=== PATIENT | female | born 1975 | race Caucasian/White ===

== ENCOUNTER 2018-01-02 11:05 | Emergency (ER) | payer BC ==
[2018-01-02 15:54] VITALS: BP 158/82
--- NOTE | 2018-01-02 21:11 | ED ---
Skin Complaint - HPI Summary HPI Summary: Patient presents to the ED with the chief complaint of probable abscess to the right inner labial fold which has been present intermittently x 2-3 years and has drained spontaneously. On this date she has been unable to drain at home. She endorses pain, intermittent drainage 1 week, with foul-smelling purulent discharge. She states it is radiating in through to the buttocks, however denies any known abscesses there. Denies any other pelvic infection. She does not see an AUTOMOBILE TECHNICIAN regularly. She was seen 3 years ago for similar complaint and the area was drained with good improvement. She has not tried warm compresses or warm baths at home. Denies any fevers, sweats, chills. Denies any other signs of infection. - History of Current Complaint Chief Complaint: EDRashSkinAbscess Time Seen by Provider: 01/02/18 12:54 Stated Complaint: PELVIC PAIN Hx Obtained From: Patient Onset/Duration: Started Hours Ago Skin Exposure Onset/Duration: Hours Ago Timing: Constant Onset Severity: Moderate Current Severity: Moderate Pain Intensity: 3 Pain Scale Used: 0-10 Numeric Aggravating Symptom(s): Touch Alleviating Symptom(s): Nothing Associated Signs & Symptoms: Tenderness - Allergy/Home Medications Allergies/Adverse Reactions: Allergies Allergy/AdvReac Type Severity Reaction Status Date / Time MS Ciprofloxacin Allergy Mild Rash Verified 12/13/13 07:12 [Ciprofloxacin] MS Azithromycin Allergy Rash Verified 12/08/13 19:44 [Azithromycin] MS Bee Venom [Bee Venom] Allergy Swelling Verified 12/08/13 19:52 MS Cephalexin [From Keflex] Allergy Rash Verified 12/08/13 19:44 MS Diphenhydramine Allergy Airway Verified 12/08/13 19:44 [From Benadryl] Obstruction MS Levofloxacin Allergy Rash Verified 11/22/15 09:01 [From Levaquin] MS Metformin Allergy Rash Verified 12/08/13 19:44 [From Glucophage] MS Sulfa Antibiotics Allergy Rash Verified 12/08/13 19:52 [Sulfa Antibiotics] PMH/Surg Hx/FS Hx/Imm Hx Previously Healthy: Yes Endocrine/Hematology History: Denies: Hx Diabetes Cardiovascular History: Reports: Hx Hypertension, Other Cardiovascular Problems/ Disorders - Hx HTN Denies: Hx Congestive Heart Failure History: Denies: Hx Renal Disease Sensory History: Reports: 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 - Surgical History Surgery Procedure, Year, and Place: 2007, , 2005, exploratory laparoscopy r/t infertility issues - Immunization History Hx Pertussis Vaccination: No Immunizations Up to Date: Unable to Obtain/Confirm Infectious Disease History: No Infectious Disease History: Denies: Traveled Outside the [place] in Last 30 Days - Social History Occupation: Employed Full-time Lives: With Family Alcohol Use: Rare Hx Substance Use: No Substance Use Type: Reports: None Hx Tobacco Use: No Smoking Status (MU): Never Smoked Tobacco Review of Systems Constitutional: Negative Negative: Fever, Chills, Fatigue, Skin Diaphoresis Eyes: Negative Cardiovascular: Negative Genitourinary: Negative Positive: no symptoms reported, see HPI. Negative: dysuria, discharge, frequency, flank pain, pain Musculoskeletal: Negative Positive: Other - pain to the pelvic floor, specifically over the interlabial folds Neurological: Negative All Other Systems Reviewed And Are Negative: Yes Physical Exam Triage Information Reviewed: Yes Vital Signs On Initial Exam: Initial Vitals Temp Pulse Resp BP Pulse Ox 98.0 F 71 20 163/79 99 01/02/18 11:09 01/02/18 11:09 01/02/18 11:09 01/02/18 11:09 01/02/18 11:09 Vital Signs Reviewed: Yes Appearance: Positive: Well-Appearing, Well-Nourished Skin: Positive: Warm, Skin Color Reflects Adequate Perfusion Head/Face: Positive: Normal Head/Face Inspection Eyes: Positive: EOMI, DONALD Neck: Positive: Supple, Nontender, No Lymphadenopathy Respiratory/Lung Sounds: Positive: Clear to Auscultation, Breath Sounds Present Cardiovascular: Positive: Normal, RRR, Pulses are Symmetrical in both Upper and Lower Extremities Musculoskeletal: Positive: Normal, Strength/ROM Intact Neurological: Positive: Speech Normal Psychiatric: Positive: Normal, Affect/Mood Appropriate AVPU Assessment: Alert Diagnostics - Vital Signs Vital Signs Temp Pulse Resp BP Pulse Ox 01/02/18 15:30 98.4 F 76 18 158/82 97 01/02/18 11:09 98.0 F 71 20 163/79 99 - Laboratory Lab Statement: Any lab studies that have been ordered have been reviewed, and results considered in the medical decision making process. Course/Dx - Course Course Of Treatment: During the course of treatment, the patient is evaluated for right inner labial abscess over the labial minora. She states she feels pressure, specifically with urination. Denies any pain with defecation. Provider set up for I and D. Povidine x 3. Palpated the vaginal entrance to assess for tracking and loculations. There appears to be a 2cm by 2cm fluctuant abscess without surrounding erythema or excoriations to the R labia minora. Upon palpation, the abscess began to drain spontaneously. Approximately 2.5cc obtained. Culture obtained and sent for sensitivities. Continued without the need for incision or anesthetic to palpate and produce copious discharge until serosangionous fluid identified. 10cc's NS flushed into the abscess cavity opening. Patient tolerated well. No iodoform dressing applied as small cavity opening. She is encouraged warm compresses and hot baths 3x daily. She will be started on clindamycin 300 mg 4 times daily 7 days. She is to follow-up with AUTOMOBILE TECHNICIAN for further evaluation due to recurring abscesses. We'll await culture results. - Diagnoses Provider Diagnoses: Abscess of right genital labia Discharge - Discharge Plan Condition: Stable Disposition: HOME Prescriptions: Clindamycin Cap(NF) [Clindamycin Cap 300 mg Cap(NF)] 300 mg PO Q6H #28 cap traMADol TAB* [Ultram*] 50 mg PO Q8H PRN #12 tab MDD 3 PRN Reason: Pain Patient Education Materials: Abscess (ED) Forms: *Work Release Referrals: Tala Shahid DO [Primary Care Provider] - Claribel Noel MD [Medical Doctor] - Additional Instructions: Warm compresses several times a day Hot soaks in a tub will help- 3 times daily Clindamycin 4 times daily 7 days Tramadol up to 3 times daily for discomfort You may also take ibuprofen with this medication on opposite schedule If he develop any worsening or changing symptoms, return to the ED immediately Follow up with AUTOMOBILE TECHNICIAN I have given you a referral Images - Images Perineum Female: 1 - 3cm x 3cm fluctuant abscess
== END 2018-01-02 15:30 | disposition home or self-care (01) ==
LOC: ED 11:05
DX: N76.4 Abscess of vulva (principal); R10.2 Pelvic and perineal pain; Z86.79 Personal history of other diseases of the circulatory system
CPT/HCPCS: 99282

== ENCOUNTER 2018-01-03 23:11 | Emergency (ER) | payer BC ==
[2018-01-04] MEDS ORDERED: NS 0.9% 1000 ML*IV.FLUID IV ONE (01:28)
[2018-01-04] MEDS ORDERED: NS 0.9% 1000 ML* 1,000 ML IV ONE ×2 (01:45→01:57)
--- NOTE | 2018-01-04 01:49 | ED ---
Skin Complaint - HPI Summary HPI Summary: 42 female presents with abscess to her vagina for the past couple days. She states yesterday it spontaneously drained when it was being palpated. She has history of abscess in the same location. She has not followed up with anyone about this. She states she's been on Clindamycin for a day. She states today she developed worsening pain and fevers. today. She denies any chills. She denies abdominal pain. She denies any dysuria. She denies any nausea vomiting. She denies any history of MRSA. She denies any cough, chest pain or SOB. She has not been doing warm soaks. She has been taking tramadol for pain. She denies any other symptoms. - History of Current Complaint Chief Complaint: EDGeneral Time Seen by Provider: 01/04/18 01:30 Stated Complaint: FEVER Pain Intensity: 8 - Allergy/Home Medications Allergies/Adverse Reactions: Allergies Allergy/AdvReac Type Severity Reaction Status Date / Time ciprofloxacin [From Cipro] Allergy Mild Rash Verified 01/04/18 02:19 azithromycin Allergy Rash Verified 01/04/18 02:19 bee venom protein (honey bee) Allergy Swelling Verified 01/04/18 02:19 cephalexin Allergy Rash Verified 01/04/18 02:19 diphenhydramine Allergy Airway Verified 01/04/18 02:19 Obstruction levofloxacin [From Levaquin] Allergy Rash Verified 01/04/18 02:19 metformin Allergy Rash Verified 01/04/18 02:19 Sulfa (Sulfonamide Allergy Rash Verified 01/04/18 02:19 Antibiotics) PMH/Surg Hx/FS Hx/Imm Hx Endocrine/Hematology History: Denies: Hx Diabetes Cardiovascular History: Reports: Hx Hypertension, Other Cardiovascular Problems/ Disorders - Hx HTN Denies: Hx Congestive Heart Failure History: Denies: Hx Renal Disease Sensory History: Reports: 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 - Surgical History Surgery Procedure, Year, and Place: 2006, , 2005, exploratory laparoscopy r/t infertility issues - Immunization History Date of Tetanus Vaccine: utd Date of Influenza Vaccine: none Infectious Disease History: No Infectious Disease History: Denies: Traveled Outside the [place] in Last 30 Days - Family History Known Family History: Positive: Diabetes - Social History Alcohol Use: Occasionally Hx Substance Use: No Substance Use Type: Reports: None Hx Tobacco Use: No Smoking Status (MU): Never Smoked Tobacco Review of Systems Positive: Fever Negative: Chest Pain Negative: Shortness Of Breath Positive: Other - abscess vagina All Other Systems Reviewed And Are Negative: Yes Physical Exam Triage Information Reviewed: Yes Vital Signs On Initial Exam: Initial Vitals Temp Pulse Resp BP Pulse Ox 100.9 F 80 20 145/75 96 01/03/18 23:18 01/03/18 23:18 01/03/18 23:18 01/03/18 23:18 01/03/18 23:18 Vital Signs Reviewed: Yes Appearance: Positive: Well-Appearing Skin: Positive: Warm, Dry Head/Face: Positive: Normal Head/Face Inspection Eyes: Positive: Normal, Conjunctiva Clear Respiratory/Lung Sounds: Positive: Clear to Auscultation, Breath Sounds Present Cardiovascular: Positive: Normal, RRR Abdomen Description: Positive: Nontender, Soft Bowel Sounds: Positive: Present Pelvic Exam: Positive: other - small laceration seen on right labia minora that is not draining any pus, no area of loculation or edema felt Musculoskeletal: Positive: Normal Neurological: Positive: Normal Psychiatric: Positive: Normal Diagnostics - Vital Signs Vital Signs Temp Pulse Resp BP Pulse Ox 01/03/18 23:18 100.9 F 80 20 145/75 96 - Laboratory Result Diagrams: 01/04/18 01:45 01/04/18 01:45 Lab Statement: Any lab studies that have been ordered have been reviewed, and results considered in the medical decision making process. Course/Dx - Course Course Of Treatment: 42 female presents with abscess to her vagina for the past couple days. She states yesterday it spontaneously drained when it was being palpated. She has history of abscess in the same location. She has not followed up with anyone about this. She states she's been on Clindamycin for a day. She states today she developed worsening pain and fevers. today. She denies any chills. She denies abdominal pain. She denies any dysuria. She denies any nausea vomiting. She denies any history of MRSA. on exam abdomen soft nontender. small laceration seen on right labia with no erythema and no pus or edema felt in area. abscess appears to be drained. labs wnl except potassium which supplemented. stated to continue clindamycin and will wait for culture to know if sensitive. told if have two days on antibiotic fever occurs to return. patient understand and agrees with plan. - Differential Diagnoses - Skin Complaint Differential Diagnoses: Abscess, Cellulitis, Systemic Illness - Diagnoses Provider Diagnoses: Abscess of right genital labia Discharge - Discharge Plan Condition: Good Disposition: HOME Patient Education Materials: Abscess (ED) Referrals: Tala Shahid DO [Primary Care Provider] - Additional Instructions: Make sure follow up with ob for continue management Add Tylenol for fever and pain every 6 hours Do warm soaks or baths of area twice a day Continue antibiotic as prescribed Return to ED if develop fever after two days on antibiotic or any new or worsening symptoms
[2018-01-04 02:00] LABS: ABS Basophils 0.1 10^3/ul (0-0.2); ABS Eosinophils 0.1 10^3/ul (0-0.6); ABS Lymphocytes 1.3 10^3/ul (1.0-4.8); ABS Monocytes 0.8 10^3/ul (0-0.8); ABS Neutrophils 7.7 10^3/ul (1.5-7.7); ABS Nucleated RBC 0 10^3/ul; Eosinophil % 0.9 % (0-6); Hematocrit 35 % (35-47); Hemoglobin 11.8 g/dl (12.0-16.0); Lymphocyte % 12.9 % (25-47); Mean Corpuscular HGB Conc 34 g/dl (31-36); Mean Corpuscular Hemoglobin 28 pg (27-31); Mean Corpuscular Volume 82 fL (80-97); Mean Platelet Volume 8 um3 (7.4-10.4); Nucleated Red Blood Cells % 0; Platelet Count 246 10^3/ul (150-450); Red Blood Count 4.25 10^6/ul (4.0-5.4); Red Cell Distribution Width 15 % (10.5-15)
[2018-01-04] MEDS ORDERED: Vancomycin(*) 1,000 MG VIAL IVPB SCH (02:00)
[2018-01-04 02:10] LABS: INR 1.03 (0.77-1.02)
[2018-01-04 02:16] LABS: EGFR Non-African American 79.1 (>60)
[2018-01-04] MEDS ORDERED: Potassium Chlor TAB* 20 MEQ TAB.ER PO ONE (02:28)
[2018-01-04 03:40] VITALS: BP 104/49
== END 2018-01-04 03:39 | disposition home or self-care (01) ==
LOC: ED 23:11
DX: N76.0 Acute vaginitis (principal); R50.9 Fever, unspecified; Z86.79 Personal history of other diseases of the circulatory system; N76.4 Abscess of vulva
CPT/HCPCS: 36415; 80053; 83605; 84484; 85025; 85610; 85730; 87040; 96365; 99282; A9270-GY

== ENCOUNTER 2018-01-05 16:48 | Inpatient (IN) | payer BC ==
[2018-01-05 18:12] LABS: ABS Basophils 0.1 10^3/ul (0-0.2); ABS Eosinophils 0 10^3/ul (0-0.6); ABS Lymphocytes 0.9 10^3/ul (1.0-4.8); ABS Monocytes 1.4 10^3/ul (0-0.8); ABS Neutrophils 11.1 10^3/ul (1.5-7.7); ABS Nucleated RBC 0 10^3/ul; Eosinophil % 0.3 % (0-6); Hematocrit 37 % (35-47); Hemoglobin 11.9 g/dl (12.0-16.0); Lymphocyte % 6.8 % (25-47); Mean Corpuscular HGB Conc 33 g/dl (31-36); Mean Corpuscular Hemoglobin 27 pg (27-31); Mean Corpuscular Volume 83 fL (80-97); Mean Platelet Volume 8 um3 (7.4-10.4); Nucleated Red Blood Cells % 0; Platelet Count 265 10^3/ul (150-450); Red Blood Count 4.39 10^6/ul (4.0-5.4); Red Cell Distribution Width 15 % (10.5-15); White Blood Count 13.5 10^3/ul (3.5-10.8)
[2018-01-05] MEDS ORDERED: Morphine INJ* 4 MG/ML 1 ML SYRINGE (NEW SYRINGE VERSION) IV ONE (18:18)
[2018-01-05] MEDS ORDERED: Ondansetron INJ* 2 MG/ML VIAL IV ONE (18:19)
[2018-01-05 18:29] LABS: EGFR Non-African American 79.1 (>60)
[2018-01-05] MEDS ORDERED: Iohexol 300* (CONTRAST) 10 ML SDV IV ONE (18:37)
[2018-01-05] MEDS: NS 0.9% 1000 ML* 2,000 ML IV ONE ×2 (18:57→19:02)
[2018-01-05] MEDS ORDERED: Piperacillin/Tazobac ADVAN(*) 3.375 GM in NS 0.9% 100 ML* 100 ML IVPB ONE (19:43)
--- NOTE | 2018-01-05 20:01 | RAD ---
CLINICAL HISTORY: Vaginal and rectal abscesses, pain COMPARISON: CT of the pelvis dated December 09, 2013 TECHNIQUE: Multiple contiguous axial CT scans were obtained of the pelvis after the administration of intravenous contrast. Coronal and sagittal multiplanar reformations are submitted for review. FINDINGS: Evaluation is limited secondary to patient body habitus. SMALL BOWEL AND MESENTERY: The small bowel is normal in contour, course, and caliber. There is no obstruction or dilatation. COLON: There is mild stranding of the perirectal fat. There is a loculated perianal fluid collection in a horseshoe configuration posterior to the anus measuring approximately 4.3 x 3.3 x 3.3 cm in size. This extends anteriorly to the level of the perineum.. KIDNEYS: The visualized portion of the lower poles of the kidneys are unremarkable. BLADDER: The bladder is smooth in contour. PELVIC ORGANS: The uterus and adnexa are grossly normal for technique. AORTA: The aorta is normal. IVC: Unremarkable LYMPH NODES: There is no lymphadenopathy by size criteria. ABDOMINAL WALL: There is no evidence for abdominal wall hernia. BONES AND SOFT TISSUES: There are mild diffuse degenerative changes. OTHER: None IMPRESSION: THERE IS A LOCULATED PERIANAL FLUID COLLECTION IN A HORSESHOE CONFIGURATION POSTERIOR TO THE ANUS, EXTENDING ANTERIORLY TO THE LEVEL OF THE PERINEUM MEASURING UP TO 4.3 CM IN SIZE, CONSISTENT WITH HISTORY OF ABSCESS.
[2018-01-05] MEDS ORDERED: Piperacillin/Tazobac (*) 3.375 GM BAG ONE (20:07)
--- NOTE | 2018-01-05 20:18 | ED ---
GI/ HPI - HPI Summary HPI Summary: 42F presents with rectal pain on right side today. She had been complaining of vaginal pain for past 4 days. She had a vaginal abscess that spontaneously drained four days ago. She states develop fever the day after and was seen here and had normal labs. denied any anal pain at the time. no abscess felt at that time vaginally. She denies any recent fever. She states has develop increase pain and swelling in anal region. She has history of vaginal abscess but no history of anal abscess or UC or crohns. She admits to constipation and states BM makes pain worst. She denies any nausea or vomiting. She denies any abdominal pain. She denies any vaginal discharge. She denies any dysuria or flank pain. She denies any bloody stools. She is not diabetic. She has been on clindamycin for past 4 days. She denies any history of MRSA. - History of Current Complaint Chief Complaint: EDRashSkinAbscess Time Seen by Provider: 01/05/18 17:46 Stated Complaint: ABD PAIN Pain Intensity: 10 - Allergy/Home Medications Allergies/Adverse Reactions: Allergies Allergy/AdvReac Type Severity Reaction Status Date / Time ciprofloxacin [From Cipro] Allergy Mild Rash Verified 01/04/18 02:19 azithromycin Allergy Rash Verified 01/04/18 02:19 bee venom protein (honey bee) Allergy Swelling Verified 01/04/18 02:19 cephalexin Allergy Rash Verified 01/04/18 02:19 diphenhydramine Allergy Airway Verified 01/04/18 02:19 Obstruction levofloxacin [From Levaquin] Allergy Rash Verified 01/04/18 02:19 metformin Allergy Rash Verified 01/04/18 02:19 Sulfa (Sulfonamide Allergy Rash Verified 01/04/18 02:19 Antibiotics) PMH/Surg Hx/FS Hx/Imm Hx Endocrine/Hematology History: Denies: Hx Diabetes Cardiovascular History: Reports: Hx Hypertension, Other Cardiovascular Problems/ Disorders - Hx HTN Denies: Hx Congestive Heart Failure History: Denies: Hx Renal Disease Sensory History: Reports: 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 - Surgical History Surgery Procedure, Year, and Place: 2006, , 2005, exploratory laparoscopy r/t infertility issues - Immunization History Date of Tetanus Vaccine: utd Date of Influenza Vaccine: none Infectious Disease History: No Infectious Disease History: Denies: Traveled Outside the [place] in Last 30 Days - Family History Known Family History: Positive: Diabetes - Social History Alcohol Use: Occasionally Hx Substance Use: No Substance Use Type: Reports: None Hx Tobacco Use: No Smoking Status (MU): Never Smoked Tobacco Review of Systems Negative: Fever Negative: Chest Pain Negative: Shortness Of Breath Positive: Other - rectal and vaginal pain All Other Systems Reviewed And Are Negative: Yes Physical Exam Triage Information Reviewed: Yes Vital Signs On Initial Exam: Initial Vitals Temp Pulse Resp BP Pulse Ox 99.7 F 103 18 156/96 100 01/05/18 16:54 01/05/18 16:54 01/05/18 16:54 01/05/18 16:54 01/05/18 16:54 Vital Signs Reviewed: Yes Appearance: Positive: Well-Appearing Skin: Positive: Warm, Dry Head/Face: Positive: Normal Head/Face Inspection Eyes: Positive: Normal, Conjunctiva Clear Respiratory/Lung Sounds: Positive: Clear to Auscultation, Breath Sounds Present Cardiovascular: Positive: Normal, RRR Abdomen Description: Positive: Nontender, Soft, Other: - tenderness around anus and with rectal exam Bowel Sounds: Positive: Present Pelvic Exam: Positive: external exam normal Musculoskeletal: Positive: Normal Neurological: Positive: Normal Psychiatric: Positive: Normal Diagnostics - Vital Signs Vital Signs Temp Pulse Resp BP Pulse Ox 01/05/18 18:56 18 01/05/18 16:54 99.7 F 103 18 156/96 100 - Laboratory Lab Results: Lab Results 01/05/18 01/05/18 01/05/18 Range/Units 18:04 18:04 18:04 WBC 13.5 H (3.5-10.8) 10^3/ul RBC 4.39 (4.0-5.4) 10^6/ul Hgb 11.9 L (12.0-16.0) g/dl Hct 37 (35-47) % MCV 83 (80-97) fL MCH 27 (27-31) pg MCHC 33 (31-36) g/dl RDW 15 (10.5-15) % Plt Count 265 (150-450) 10^3/ul MPV 8 (7.4-10.4) um3 Neut % (Auto) 82.2 (38-83) % Lymph % (Auto) 6.8 L (25-47) % [place] % (Auto) 10.1 H (0-7) % Eos % (Auto) 0.3 (0-6) % Baso % (Auto) 0.6 (0-2) % Absolute Neuts (auto) 11.1 H (1.5-7.7) 10^3/ul Absolute Lymphs (auto) 0.9 L (1.0-4.8) 10^3/ul Absolute Monos (auto) 1.4 H (0-0.8) 10^3/ul Absolute Eos (auto) 0 (0-0.6) 10^3/ul Absolute Basos (auto) 0.1 (0-0.2) 10^3/ul Absolute Nucleated RBC 0 10^3/ul Nucleated RBC % 0 Sodium 137 (133-145) mmol/L Potassium 3.3 L (3.5-5.0) mmol/L Chloride 104 (101-111) mmol/L Carbon Dioxide 26 (22-32) mmol/L Anion Gap 7 (2-11) mmol/L BUN 9 (6-24) mg/dL Creatinine 0.79 (0.51-0.95) mg/dL Est GFR ( Amer) 101.7 (>60) Est GFR (Non-Af Amer) 79.1 (>60) BUN/Creatinine Ratio 11.4 (8-20) Glucose 105 H (70-100) mg/dL Lactic Acid 0.9 (0.5-2.0) mmol/L Calcium 8.6 (8.6-10.3) mg/dL Total Bilirubin 0.60 (0.2-1.0) mg/dL AST 13 (13-39) U/L ALT 8 (7-52) U/L Alkaline Phosphatase 66 (34-104) U/L C-React Prot High Sens 25.69 mg/L Total Protein 7.0 (6.4-8.9) g/dL Albumin 3.4 (3.2-5.2) g/dL Globulin 3.6 (2-4) g/dL Albumin/Globulin Ratio 0.9 L (1-3) Beta HCG, Quant < 0.60 mIU/mL Result Diagrams: 01/05/18 18:04 01/05/18 18:04 Lab Statement: Any lab studies that have been ordered have been reviewed, and results considered in the medical decision making process. GIGU Course/Dx - Course Course Of Treatment: 42F presents with rectal pain on right side today. She had been complaining of vaginal pain for past 4 days. She had a vaginal abscess that spontaneously drained four days ago. She states develop fever the day after and was seen here and had normal labs. denied any anal pain at the time. no abscess felt at that time vaginally. She denies any recent fever. She states has develop increase pain and swelling in anal region. She has history of vaginal abscess but no history of anal abscess or UC or crohns. She admits to constipation and states BM makes pain worst. She denies any nausea or vomiting. She denies any abdominal pain. She denies any vaginal discharge. She denies any dysuria or flank pain. She denies any bloody stools. She is not diabetic. on exam has tenderness around anus and with rectal exam. no abscess felt on exam. CT shows large perianal abscess. discussed case with dr juárez who will see in ED. dr juárez will admit. - Diagnoses Differential Diagnoses - Female: Hemorrhoids, Vaginitis, Other - abscess Provider Diagnoses: Perianal abscess Discharge - Discharge Plan Condition: Stable Disposition: [facility]
[2018-01-05] MEDS ORDERED: Ondansetron INJ* 2 MG/ML VIAL IV PRN (21:27)
[2018-01-05] MEDS: HYDROmorphone INJ* 2 MG/ML CARPUJECT SYRINGE IV PRN ×2 (22:05→23:34)
--- NOTE | 2018-01-05 22:24 | HP ---
CC: [facility]; Madeleine Shahid DO * HISTORY AND PHYSICAL: DATE OF ADMISSION: HISTORY OF PRESENT ILLNESS: I was contacted by the emergency room to evaluate Ms. Mandujano, a 42-year-old female, with a 4-day history of perineal discomfort. The patient had presented to the emergency room 3 days ago with pelvic pain. It was felt to be a vaginal issue and underwent what was felt to be at that time spontaneous drainage of a vaginal abscess. She followed up the following day. She was started on clindamycin and discharged home. She came back to the emergency room yesterday with similar complaints, was maintained on clindamycin and referred to a underwriting operations manager. The patient states she did have some perianal pain at that time as well, but this had worsened over the course of the last day. The patient presented again today with 10/10 rectal pain mostly on the right side. The patient suffered with clinically severe obesity with a body mass index of 65 and was run to the CAT scan to evaluate. The images as well as the report were reviewed and it does show a perirectal abscess in a horseshoe fashion measured approximately 4 cm. The patient was given a dose of Zosyn and we were contacted. The patient prescribes having abscesses in the past around the vaginal area and the groin, but not perirectal abscesses. The patient is non-diabetic. The patient has no additional complaints. Pain is minimally relieved with narcotics and rest, worse with movement and bowel movements. Her last bowel movement was earlier today. She denies any nausea or vomiting. She has had low -grade temperature. PAST MEDICAL HISTORY: Polycystic ovary disease and hypertension. MEDICATIONS: Include: 1. Ultram. 2. Actos. 3. Lisinopril. 4. Hydrochlorothiazide. 5. Clindamycin that was started. ALLERGIES: List is reviewed. SOCIAL HISTORY: Nonsmoker. Lives with her family. REVIEW OF SYSTEMS: Low-grade fevers, no chills. No recent upper respiratory infection, no shortness of breath or chest pain. Obesity as described. No abdominal pain. Rectal and vaginal discomfort and pain as described. No drainage rectally. No dysuria. No bleeding or clotting disorders. PHYSICAL EXAMINATION GENERAL: Alert and oriented x3, in no distress but saddened. VITAL SIGNS: The patient's temperature is 99.7; heart rate on arrival 103, now 76; blood pressure 145/69. LUNGS: Clear. ABDOMEN: Soft, obese, nontender. EXTREMITIES: Show edema without pitting. : Vaginal area is intact without active drainage. Perianal area shows no cellulitis. She is tender diffusely without fluctuance. Digital rectal exam was performed and the patient is significantly tender. No masses were appreciated. DIAGNOSTIC STUDIES/LAB DATA: Show white count of 13.5. Chemistry panel has an elevated CRP of 25. CT scan reviewed and described above. IMPRESSION: A 42-year-old female, morbidly obese, 390 pounds, BMI of 65, who now has radiographic evidence and clinical suspicion for a perirectal abscess. This could be potential horseshoe abscess but mostly is on the right side. It does want drainage. This cannot be performed without operating room and I recommended general anesthesia operating room and incision and drainage. We will admit her to the hospital. Continue Zosyn. We will continue n.p.o. status and IV fluids. She can certainly ambulate and we will record her urine output. She does feel signs of systemic inflammatory response without sepsis. I did review the blood cultures from the other admissions that showed no growth and there was no fluid cultures to review. The patient understands that my partner will likely to do the drainage. [id number]/[facility] #: [id number] MTDD
[2018-01-05] MEDS: NS 0.9% 1000 ML* 1,000 ML IV SCH (23:20)
[2018-01-06] MEDS ORDERED: Piperacillin/Tazobactam VIAL*) 3.375 GM in NS 0.9% 100 ML* 100 ML IVPB SCH (01:00)
[2018-01-06] MEDS: Piperacillin/Tazobactam 13.5 GM IV 24 hour continuous infusion IVPB SCH ×2 (01:14)
[2018-01-06] MEDS: HYDROmorphone INJ* 2 MG/ML CARPUJECT SYRINGE IV PRN (04:12)
[2018-01-06] MEDS: NS 0.9% 1000 ML* 1,000 ML IV SCH ×2 (07:27→17:38)
[2018-01-06] MEDS ORDERED: Lidocaine 2% JELLY* 6 ML JELLY TOPICAL ONE (14:13)
[2018-01-06] MEDS ORDERED: Bupivacaine 0.5% SDV PF* 10-30ML VIAL ONE ×2 (14:13→15:46)
[2018-01-06] MEDS ORDERED: Lidocaine 1% MPF wEPI 200,000* 30 ML SDV ONE ×3 (14:31→15:46)
[2018-01-06] MEDS ORDERED: Midazolam* 1 MG/ML 5 ML VIAL (5 MG) ONE (14:34)
[2018-01-06] MEDS ORDERED: fentaNYL* 50 MCG/ML 2 ML VIAL (100 MCG VIAL) ONE ×2 (14:34→14:52)
[2018-01-06] MEDS ORDERED: Midazolam* 1 MG/ML 2 ML VIAL (2 MG) ONE ×2 (14:52→15:37)
[2018-01-06] MEDS ORDERED: KETAMINE HCL* 50 MG/ML 10 ML VIAL ONE (14:52)
--- NOTE | 2018-01-06 16:02 | OP ---
Operative Report - Blank - Operative Report Date of Operation: 01/06/18 Note: Preop Dx: perianal abscess Postop Dx: same Procedure: Exam under anesthesia; aspiration perianal and perineal areas, submitted for C&S Anesthesia: local/MAC Surgeon: Richard Asst: FILIBERTO Gaines; GARETT Coombs Fluids: 1000 ml EBL: < 50 ml Drains/Packs: none Findings: dictated
[2018-01-06] MEDS ORDERED: Ketorolac INJ* 30 MG/ML 1 ML VIAL IV PUSH PRN (16:06)
[2018-01-06] MEDS ORDERED: Acetaminophen TAB* 325 MG PO PRN ×2 (16:06→16:13)
[2018-01-06] MEDS ORDERED: oxyCODONE TAB* 5 MG TAB PO PRN (16:13)
[2018-01-06] MEDS ORDERED: Naloxone* 0.4 MG/ML 1 ML VIAL IV PRN (16:13)
[2018-01-06] MEDS: HYDROcodone/ACETAMIN 5-325 MG* 1 TAB PO PRN (18:41)
[2018-01-07] MEDS: HYDROcodone/ACETAMIN 5-325 MG* 1 TAB PO PRN (00:14)
[2018-01-07] MEDS: NS 0.9% 1000 ML* 1,000 ML IV SCH ×3 (01:09→18:37)
[2018-01-07] MEDS: Piperacillin/Tazobactam 13.5 GM IV 24 hour continuous infusion IVPB SCH ×2 (01:09)
[2018-01-07 05:28] LABS: ABS Basophils 0 10^3/ul (0-0.2); ABS Eosinophils 0.1 10^3/ul (0-0.6); ABS Lymphocytes 1.6 10^3/ul (1.0-4.8); ABS Monocytes 0.9 10^3/ul (0-0.8); ABS Neutrophils 6.2 10^3/ul (1.5-7.7); ABS Nucleated RBC 0 10^3/ul; Eosinophil % 1.1 % (0-6); Hematocrit 30 % (35-47); Hemoglobin 10.2 g/dl (12.0-16.0); Lymphocyte % 18.2 % (25-47); Mean Corpuscular HGB Conc 34 g/dl (31-36); Mean Corpuscular Hemoglobin 29 pg (27-31); Mean Corpuscular Volume 83 fL (80-97); Mean Platelet Volume 8 um3 (7.4-10.4); Nucleated Red Blood Cells % 0; Platelet Count 207 10^3/ul (150-450); Red Blood Count 3.56 10^6/ul (4.0-5.4); Red Cell Distribution Width 15 % (10.5-15); White Blood Count 8.8 10^3/ul (3.5-10.8)
[2018-01-07] MEDS: Heparin VIAL(*) 5000 UNITS/ML VIAL (FIVE THOUSAND) SUBCUT SCH ×3 (05:28→21:22)
[2018-01-07 05:42] LABS: EGFR Non-African American 97.3 (>60)
--- NOTE | 2018-01-07 08:41 | PN ---
Progress Note - Progress Note Date of Service: 01/07/18 SOAP: Subjective: She feels much better today-much less pain and moving around well. Having some lorenzo drainage from vaginal vault, minimal bleeding Ambulating without problem Objective: Afebrile for 24 hours Temp Pulse Resp BP Pulse Ox 97.6 F 52 18 108/52 97 01/07/18 03:36 01/07/18 03:36 01/07/18 03:36 01/07/18 03:36 01/07/18 03:36 Intake & Output 01/05/18 01/06/18 01/07/18 01/08/18 06:59 06:59 06:59 06:59 Intake Total 1100 5305 Output Total 700 325 Balance 400 4980 Weight 390 lb Intake: IV Fluids 1100 4625 ABX - ZOSYN 500 LR 1100 NS (0.9%) 1986 Oral 0 680 Output: Urine 700 325 PEX: Patient standing and difficult to examine today Pad with lorenzo non-odorous drainage Laboratory Results - last 24 hr 01/07/18 01/07/18 05:19 05:19 WBC 8.8 RBC 3.56 L Hgb 10.2 L Hct 30 L MCV 83 MCH 29 MCHC 34 RDW 15 Plt Count 207 MPV 8 Neut % (Auto) 70.3 Lymph % (Auto) 18.2 L [place] % (Auto) 9.9 H Eos % (Auto) 1.1 Baso % (Auto) 0.5 Absolute Neuts (auto) 6.2 Absolute Lymphs (auto) 1.6 Absolute Monos (auto) 0.9 H Absolute Eos (auto) 0.1 Absolute Basos (auto) 0 Absolute Nucleated RBC 0 Nucleated RBC % 0 Sodium 139 Potassium 3.3 L Chloride 110 Carbon Dioxide 25 Anion Gap 4 BUN 7 Creatinine 0.66 Est GFR ( Amer) 125.1 Est GFR (Non-Af Amer) 97.3 BUN/Creatinine Ratio 10.6 Glucose 93 Calcium 8.0 L Assessment: POD#1 s/p exam under anesthesia for right labial abscess, drained--no evidence of becca-anal or becca-rectal abscess. Morbid obesity Plan: Continue IV abx Diet Sitz bath if possible If continued improvement in next 24 hours, plan d/c home tomorrow on oral antibiotics.
--- NOTE | 2018-01-07 13:20 | OP ---
CC: [facility]; [facility] OPERATIVE REPORT: DATE OF OPERATION: 01/06/18 DATE OF : 71 SURGEON: Colt Ramos MD PHYSICIAN REPRESENTATIVE: FILIBERTO Bender ANESTHESIOLOGIST: Dr. Reddy. ANESTHESIA: Local with monitored anesthesia care. PRE-OP DIAGNOSES: 1. Possible perirectal abscess. 2. Recent right labial abscess. POST-OP DIAGNOSES: 1. No findings of perianal or perirectal abscess. 2. Spontaneously drained right labial abscess. OPERATIVE PROCEDURE: Anal, rectal, and vaginal exam under anesthesia with culture of fluid and aspiration of soft tissues in the perineum and perirectal area. ESTIMATED BLOOD LOSS: Minimal. SPECIMENS: Fluid for Gram stain and culture. COMPLICATIONS: None. DRAINS: None. PACKING: None. BRIEF HISTORY: Ms. Arcelia Mandujano is a 42-year-old woman who presented to the emergency room last night with rectal pain. She had been seen in the emergency room twice in the last 4 days and had a right labial abscess that was drained and was started on antibiotics. The pain persisted and she as per above developed severe perianal discomfort. She was noted to have low-grade fever and slight elevation of white blood cell count. She is morbidly obese with a BMI of 65 and an exam was difficult to perform. A CT scan of her pelvis was obtained; however, which showed concern for an abscess posterior to the anorectum--concern for a horseshoe-appearing abscess. She subsequently had a large amount of spontaneous purulent drainage from her vagina last night, but was admitted and started on IV antibiotics and was planned to be taken to the operating room today for an exam under anesthesia and possible abscess drainage. The procedure was discussed with the patient and her and the risks of, but not limited to, of bleeding, infection, abscess formation, discomfort, risk of anesthesia, further surgical intervention depending on operative findings, prolonged abscess cavity packing with dressing changes were all explained. In addition, due to her morbid obesity, she is at increased risk for anesthesia as well. FINDINGS: The patient had a previous recently drained right anterior inner labia abscess with a small opening with tenderness extending down along the vaginal wall on the right to the posterior wall of the vagina and perineum. There was no abnormality noted on the left. The perirectal and perianal areas showed some small internal and external hemorrhoids, but no evidence of induration, redness, mass or fluctuance. Anorectal exam showed some internal hemorrhoids without evidence of other abnormality. Aspiration in all 4 quadrants of the perianal area revealed no purulence or abscess. There was some small amount of turbid fluid aspirated in the right perineal area anterior to the rectum and this was sent for culture. There was no obvious abscess cavity and the labial abscess which I believe extended along the distal vaginal wall and vault appear to be adequately drained and was not opened. DESCRIPTION OF PROCEDURE: Written informed consent was obtained, the patient was already on IV antibiotics. She was taken to the operating room and placed in the prone david-knife position. Sequential compression devices and a warming blanket were applied. Anesthesia was administered. The perineum and buttocks were prepped and draped in the usual sterile fashion. She was placed in the prone david-knife position. Time-out verification was completed. Initially, 0.5% Marcaine mixed with 1% lidocaine with epinephrine was infiltrated in the perianal area as well as into the perineum. On careful examination, it appeared that there was no evidence of induration, redness, fullness, but she had been uncomfortable on exam in the perianal area. In all 4 quadrants of the perianal area, I passed an 18-gauge spinal needle several centimeters into the soft tissue. There was no evidence of an abscess, pus, fluid, or blood. Digital rectal exam which I also performed showed no evidence of mass or blood. Anoscopy showed some internal and external hemorrhoids, but no internal openings or other abnormality. Next, once again careful evaluation of the labia majora, the more posterior aspect was unremarkable. There was no induration or redness in the perineum and I also used a new 18-gauge needle to pass through this area into the soft tissue to see if it could aspirate an abscess cavity. There was some blood and some turbid fluid on one pass which I collected and sent for culture, but no true abscess cavity was entered. Further careful evaluation of the right labia majora noted the previously drained abscess cavity more anteriorly. This was well drained and there was no fluctuance or redness. I suspect at this point that perhaps the labial abscess had spontaneously drained after the CAT scan and the findings on the CT scan were more consistent with a perivaginal/perineal infection rather than a true perirectal abscess. At this point, I did not feel that there was further packing or opening of the abscess cavity, it seemed to be well drained and hemostasis was assured. Dry dressings were applied. The patient tolerated the procedure well, was taken to the recovery room in stable condition. [id number]/[facility] #: [id number] MTDD
[2018-01-08] MEDS: Piperacillin/Tazobactam 13.5 GM IV 24 hour continuous infusion IVPB SCH ×2 (01:01)
[2018-01-08] MEDS: NS 0.9% 1000 ML* 1,000 ML IV SCH (02:37)
[2018-01-08] MEDS: Heparin VIAL(*) 5000 UNITS/ML VIAL (FIVE THOUSAND) SUBCUT SCH (05:43)
[2018-01-08 07:24] VITALS: BP 138/62
--- NOTE | 2018-01-08 09:01 | PN ---
Progress Note - Progress Note Date of Service: 01/08/18 SOAP: Subjective: Patient seen and examined at bedside. Reports doing very well overall. No fever yesterday, pain has significantly improved. Denies discharge from I&D site, did not have to change her pad all day. Ambulatory, tolerating diet and would like to go home. Objective: Awake and alert, comfortable in bed. VSS, afebrile past 24 hrs Exam done with nurse presents in room; right labial fold with no erythema or induration noted. I&D site has healed well, non-tender, with no evidence of discharge or bleeding. Assessment: POD#2, s/p I&D right labial fold abscess, doing very well Plan: D/C to home today on Augmentin F/U in office next week.
--- NOTE | 2018-01-08 23:11 | DS ---
DISCHARGE SUMMARY: DATE OF ADMISSION: 01/06/18 DATE OF DISCHARGE: 01/08/18 PATIENT OF: Dr. Eriberto Trevino and Dr. Colt Ramos. ADMISSION DIAGNOSES: 1. Perirectal pain. 2. Fever. 3. Perirectal abscess. 4. Right labial abscess. DISCHARGE DIAGNOSES: 1. Perirectal pain. 2. Fever. 3. Perirectal abscess. 4. Right labial abscess. ADMITTING PHYSICIAN: Eriberto Trevino MD * (DICTATED BY FILIBERTO STAPLETON) CONSULTATION: Colt Ramos MD PROCEDURE: Examination under anesthesia of the perirectal area, perineum and vagina with the incision and drainage of right labial abscess on 01/06/18. HISTORY OF PRESENT ILLNESS: Arcelia is a 42-year-old female who was evaluated in the emergency room with 4-day history of perineal discomfort. She presented to the emergency room 3 days ago with pelvic and it felt to be vaginal issues and underwent what it was felt to be a spontaneous drainage of the vaginal abscess. The patient was followed up on the following day, started on clindamycin and was discharged to home. She returned to the emergency room on 01/05/18 with similar complaints that was maintained on the same antibiotics with referral to a prekindergarten teacher. The patient had developed new perianal pain at that time. She described it was 10/10 mostly to the perirectal area accompanied with low grade fever. She also had suffered from clinically severe obesity with body mass index of 65. CT scan was obtained and that showed possible perirectal abscess that measured approximately 4 cm for which she was given antibiotic and was admitted for further evaluation and possible surgical intervention. HOSPITAL COURSE: The patient was admitted under surgical services. She was covered prophylactically with Zosyn and kept NPO overnight. She was taken to the operating room on 01/06/18 where she underwent an exam under anesthesia of the perirectal, perineum, and vaginal area. She was found to have a small collection on the right labial fold that was incised and drained and the patient returned to the recovery room in a stable condition. She returned back to the surgical floor and kept for the following 2 days. She continued to improve on a daily basis and she denied any significant pain. She had some ____ _ colored discharge on the first day postoperatively, but the discharge eventually subsided. She was ambulatory, out of bed, and tolerating diet. She will be discharged to home today on oral antibiotics and will be seen in the office next week for followup. DISCHARGE MEDICATIONS: Include; 1. Augmentin 875 mg p.o. b.i.d. for 7 days. 2. Hydrochlorothiazide 50 mg p.o. daily. 3. [place] 5/325 mg 1 to 2 tablets every 6 hours as needed for pain. 4. Actos 30 mg p.o. q.h.s. PROBLEM LIST: Perirectal and perineal abscess, status post examination under anesthesia with incision and drainage of the right labial abscess on 01/06/18. FILIBERTO STAPLETON [id number]/[facility] #: [id number] MTDD
== END 2018-01-08 10:30 | disposition home or self-care (01) | DRG 531 ==
LOC: ED 16:48 → SSU 21:27 → OBSVTOIN 01-06 15:58 → SSU 01-06 16:48
PROVIDERS: ADMIT Surgery; ATTEND Surgery
PROC: 0U9MXZX Drainage of Vulva, External Approach, Diagnostic (ICD-10-PCS; principal; 2018-01-06 14:15)
DX: N76.4 Abscess of vulva (principal); Z68.44 Body mass index [BMI] 60.0-69.9, adult; E66.01 Morbid (severe) obesity due to excess calories; B96.20 Unspecified Escherichia coli [E. coli] as the cause of diseases classified elsewhere; B95.4 Other streptococcus as the cause of diseases classified elsewhere; E28.2 Polycystic ovarian syndrome; I10 Essential (primary) hypertension; Z79.899 Other long term (current) drug therapy
CPT/HCPCS: 36415; 72193; 80048; 80053; 83605; 84702; 85025; 86141; 87070; 87073; 87077; 87186; 87205; 87640; 87641; 99284; J1170; J1644; J2001; J2250; J2270; J2405; J2543; J3010; Q9967

== ENCOUNTER 2018-01-08 21:25 | Emergency (ER) | payer BC ==
[2018-01-08 23:23] LABS: Hematocrit 32 % (35-47); Hemoglobin 10.6 g/dl (12.0-16.0); Mean Corpuscular HGB Conc 34 g/dl (31-36); Mean Corpuscular Hemoglobin 28 pg (27-31); Mean Corpuscular Volume 83 fL (80-97); Mean Platelet Volume 8 um3 (7.4-10.4); Platelet Count 272 10^3/ul (150-450); Red Blood Count 3.81 10^6/ul (4.0-5.4); Red Cell Distribution Width 15 % (10.5-15); White Blood Count 7.7 10^3/ul (3.5-10.8)
[2018-01-08 23:32] LABS: INR 1.03 (0.77-1.02)
[2018-01-08 23:33] LABS: ABS Basophils 0.1 10^3/ul (0-0.2); ABS Eosinophils 0.1 10^3/ul (0-0.6); ABS Neutrophils 5.5 10^3/ul (1.5-7.7); ABS Nucleated RBC 0 10^3/ul; Lymphocyte % 13.5 % (25-47); Nucleated Red Blood Cells % 0.1
[2018-01-09 01:15] VITALS: BP 143/72
--- NOTE | 2018-01-09 01:37 | ED ---
Miguel Angel Rondon Abhishek, scribed for Jamie Mock MD on 01/09/18 at 0109 . HPI Chest Pain - HPI Summary HPI Summary: The pt is a 42 y/o female with chief complaint of chest pressure since 1900. The pt was discharged earlier from the [facility] today at 1030 and received pain medication. Edna was given to the pt, however, she did not take any. She was previously admitted for a perirectal abscess. Pt also reports of SOB, nausea, vomiting, and leg pain on the sides. The patient rates the pain 6/10 in severity. Symptoms aggravated by nothing. Symptoms alleviated by nothing. - History of Current Complaint Chief Complaint: EDChestWallPain Time Seen by Provider: 01/08/18 22:16 Pain Intensity: 6 - Additional Pertinent History Primary Care Physician: [id number] - Allergy/Home Medications Allergies/Adverse Reactions: Allergies Allergy/AdvReac Type Severity Reaction Status Date / Time ciprofloxacin [From Cipro] Allergy Mild Rash Verified 01/08/18 21:43 azithromycin Allergy Rash Verified 01/08/18 21:43 bee venom protein (honey bee) Allergy Swelling Verified 01/08/18 21:43 cephalexin Allergy Rash Verified 01/08/18 21:43 diphenhydramine Allergy Airway Verified 01/08/18 21:43 Obstruction levofloxacin [From Levaquin] Allergy Rash Verified 01/08/18 21:43 metformin Allergy Rash Verified 01/08/18 21:43 Sulfa (Sulfonamide Allergy Rash Verified 01/08/18 21:43 Antibiotics) PMH/Surg Hx/FS Hx/Imm Hx Endocrine/Hematology History: Denies: Hx Diabetes Cardiovascular History: Reports: Hx Hypertension, Other Cardiovascular Problems/ Disorders - Hx HTN Denies: Hx Congestive Heart Failure History: Denies: Hx Renal Disease Sensory History: Reports: 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 Denies: Hx Contacts or Glasses, Hx Hearing Aid Opthamlomology History: Denies: Hx Contacts or Glasses - Surgical History Surgery Procedure, Year, and Place: 2006, , 2005, exploratory laparoscopy r/t infertility issues - Immunization History Date of Tetanus Vaccine: utd Date of Influenza Vaccine: none Infectious Disease History: No Infectious Disease History: Denies: Traveled Outside the [place] in Last 30 Days - Family History Known Family History: Positive: Diabetes Negative: Cardiac Disease - Social History Alcohol Use: Occasionally Hx Substance Use: No Substance Use Type: Reports: None Hx Tobacco Use: No Smoking Status (MU): Never Smoked Tobacco Review of Systems Constitutional: Negative Eyes: Negative ENT: Negative Positive: Chest Pain - "pressure" Positive: Shortness Of Breath Positive: Vomiting, Nausea Musculoskeletal: Other - leg pain on the sides Skin: Negative Neurological: Negative Psychological: Normal All Other Systems Reviewed And Are Negative: Yes Physical Exam - Summary Physical Exam Summary: VITAL SIGNS: Reviewed. GENERAL: ~Patient is morbidly obese ( FEMALE) who is lying comfortable in the stretcher. Patient is not in any acute respiratory distress. HEAD AND FACE: No signs of trauma. No ecchymosis, hematomas or skull depressions. No sinus tenderness. EYES: PERRLA, EOMI x 2, No injected conjunctiva, no nystagmus. EARS: Hearing grossly intact. Ear canals and tympanic membranes are within normal limits. MOUTH: Oropharynx within normal limits. NECK: Supple, trachea is midline, no adenopathy, no JVD, no carotid bruit, no c- spine tenderness, neck with full ROM. CHEST: Symmetric, n SKIN: Dry and warm o tenderness at palpation LUNGS: Clear to auscultation bilaterally. No wheezing or crackles. CVS: Regular rate and rhythm, S1 and S2 present, no murmurs or gallops appreciated. ABDOMEN: Soft, non-tender. No signs of distention. No rebound no guarding, and no masses palpated. Bowel sounds are normal. EXTREMITIES: FROM in all major joints, no edema, no cyanosis or clubbing. NEURO: Alert and oriented x 3. No acute neurological deficits. Speech is normal and follows commands. Triage Information Reviewed: Yes Vital Signs On Initial Exam: Initial Vitals Temp Pulse Resp BP Pulse Ox 98.2 F 62 16 162/96 99 01/08/18 21:28 01/08/18 21:28 01/08/18 21:28 01/08/18 21:28 01/08/18 21:28 Vital Signs Reviewed: Yes Diagnostics - Vital Signs Vital Signs Temp Pulse Resp BP Pulse Ox 01/09/18 00:01 58 21 145/73 99 01/09/18 00:00 59 19 96 01/08/18 23:30 60 19 163/81 99 01/08/18 23:23 97 01/08/18 23:10 60 18 156/85 99 01/08/18 23:06 60 18 138/114 98 01/08/18 23:00 61 22 98 01/08/18 22:00 58 23 98 01/08/18 21:44 62 18 100 01/08/18 21:28 98.2 F 62 16 162/96 99 - Laboratory Lab Results: Lab Results 01/08/18 01/08/18 01/08/18 Range/Units 23:13 23:13 23:13 WBC 7.7 (3.5-10.8) 10^3/ul RBC 3.81 L (4.0-5.4) 10^6/ul Hgb 10.6 L (12.0-16.0) g/dl Hct 32 L (35-47) % MCV 83 (80-97) fL MCH 28 (27-31) pg MCHC 34 (31-36) g/dl RDW 15 (10.5-15) % Plt Count 272 (150-450) 10^3/ul MPV 8 (7.4-10.4) um3 Neut % (Auto) 72.0 (38-83) % Lymph % (Auto) 13.5 L (25-47) % [place] % (Auto) 12.8 H (0-7) % Eos % (Auto) 1.0 (0-6) % Baso % (Auto) 0.7 (0-2) % Absolute Neuts (auto) 5.5 (1.5-7.7) 10^3/ul Absolute Lymphs (auto) 1.0 (1.0-4.8) 10^3/ul Absolute Monos (auto) 1.0 H (0-0.8) 10^3/ul Absolute Eos (auto) 0.1 (0-0.6) 10^3/ul Absolute Basos (auto) 0.1 (0-0.2) 10^3/ul Absolute Nucleated RBC 0 10^3/ul Nucleated RBC % 0.1 INR (Anticoag Therapy) 1.03 H (0.77-1.02) APTT 33.8 (26.0-36.3) seconds Sodium 140 (133-145) mmol/L Potassium 3.4 L (3.5-5.0) mmol/L Chloride 109 (101-111) mmol/L Carbon Dioxide 24 (22-32) mmol/L Anion Gap 7 (2-11) mmol/L BUN 5 L (6-24) mg/dL Creatinine 0.65 (0.51-0.95) mg/dL Est GFR ( Amer) 127.3 (>60) Est GFR (Non-Af Amer) 99.0 (>60) BUN/Creatinine Ratio 7.7 L (8-20) Glucose 93 (70-100) mg/dL Lactic Acid (0.5-2.0) mmol/L Calcium 8.5 L (8.6-10.3) mg/dL Magnesium 1.9 (1.9-2.7) mg/dL Total Bilirubin 0.40 (0.2-1.0) mg/dL AST 14 (13-39) U/L ALT 10 (7-52) U/L Alkaline Phosphatase 58 (34-104) U/L Troponin I 0.01 (<0.04) ng/mL Total Protein 6.4 (6.4-8.9) g/dL Albumin 3.1 L (3.2-5.2) g/dL Globulin 3.3 (2-4) g/dL Albumin/Globulin Ratio 0.9 L (1-3) Beta HCG, Quant < 0.60 mIU/mL 01/08/18 Range/Units 23:13 WBC (3.5-10.8) 10^3/ul RBC (4.0-5.4) 10^6/ul Hgb (12.0-16.0) g/dl Hct (35-47) % MCV (80-97) fL MCH (27-31) pg MCHC (31-36) g/dl RDW (10.5-15) % Plt Count (150-450) 10^3/ul MPV (7.4-10.4) um3 Neut % (Auto) (38-83) % Lymph % (Auto) (25-47) % [place] % (Auto) (0-7) % Eos % (Auto) (0-6) % Baso % (Auto) (0-2) % Absolute Neuts (auto) (1.5-7.7) 10^3/ul Absolute Lymphs (auto) (1.0-4.8) 10^3/ul Absolute Monos (auto) (0-0.8) 10^3/ul Absolute Eos (auto) (0-0.6) 10^3/ul Absolute Basos (auto) (0-0.2) 10^3/ul Absolute Nucleated RBC 10^3/ul Nucleated RBC % INR (Anticoag Therapy) (0.77-1.02) APTT (26.0-36.3) seconds Sodium (133-145) mmol/L Potassium (3.5-5.0) mmol/L Chloride (101-111) mmol/L Carbon Dioxide (22-32) mmol/L Anion Gap (2-11) mmol/L BUN (6-24) mg/dL Creatinine (0.51-0.95) mg/dL Est GFR ( Amer) (>60) Est GFR (Non-Af Amer) (>60) BUN/Creatinine Ratio (8-20) Glucose (70-100) mg/dL Lactic Acid 1.0 (0.5-2.0) mmol/L Calcium (8.6-10.3) mg/dL Magnesium (1.9-2.7) mg/dL Total Bilirubin (0.2-1.0) mg/dL AST (13-39) U/L ALT (7-52) U/L Alkaline Phosphatase (34-104) U/L Troponin I (<0.04) ng/mL Total Protein (6.4-8.9) g/dL Albumin (3.2-5.2) g/dL Globulin (2-4) g/dL Albumin/Globulin Ratio (1-3) Beta HCG, Quant mIU/mL Result Diagrams: 01/08/18 23:13 01/08/18 23:13 Lab Statement: Any lab studies that have been ordered have been reviewed, and results considered in the medical decision making process. - Radiology Chest X-ray Radiology Interpretation Completed By: Radiologist - CXR reveals, per radiologist, no acute process ED physician has reviewed this radiology report and agrees. - EKG 2137 EKG Rhythm: Sinus Rhythm - 60 bpm EKG Interpretation: EKG at 2138 reveals normal axis normal intervals no ischemic changes. Chest Pain Course/Dx - Course Course Of Treatment: The pt is a 42 y/o female with chief complaint of chest pressure. She reports of SOB, nausea, vomiting, and leg pain on the sides. She also received a chest x-ray and EKG in the [facility]. The pt dx will be atypical chest pain. The pt will be discharged home. On reevaluation, we discussed the pt 's dx and the discharge instructions. We highly recommended that the pt receives a stress test upon follow up with PCP within 2 to 3 days. - Diagnoses Provider Diagnoses: Atypical chest pain Discharge - Discharge Plan Condition: Stable Disposition: HOME Patient Education Materials: Chest Pain (ED) Referrals: Tala Shahid DO [Primary Care Provider] - (Follow up with PCP within 2 to 3 days) Additional Instructions: We recommend that the pt receives a stress test upon following up with Primary care physician. RETURN TO EMERGENCY DEPARTMENT FOR ANY NEW OR WORSENING SYMPTOMS The documentation as recorded by the Miguel Angel zarco Abhishek accurately reflects the service I personally performed and the decisions made by , Jamie Mock MD.
--- NOTE | 2018-01-09 07:45 | RAD ---
INDICATION: Chest pain COMPARISON: December 09, 2013 TECHNIQUE: An AP portable view obtained at 2255 hours is submitted. FINDINGS: Bones/Soft Tissues: There are no acute bony findings. Cardiomediastinal: The cardiomediastinal silhouette is normal. Lungs: There are no infiltrates. Pleura: There are no pleural effusions. Other: None IMPRESSION: NO ACTIVE DISEASE.
== END 2018-01-09 01:12 | disposition home or self-care (01) ==
LOC: ED 21:25
DX: R07.89 Other chest pain (principal); Z86.79 Personal history of other diseases of the circulatory system; R06.02 Shortness of breath; R11.2 Nausea with vomiting, unspecified; E66.01 Morbid (severe) obesity due to excess calories
CPT/HCPCS: 36415; 71045; 80053; 83605; 83735; 84484; 84702; 85025; 85610; 85730; 93005; 99282